=== PATIENT | male | born 1950 | race Caucasian/White ===

== ENCOUNTER → 2023-02-27 | Outpatient (CLI) | payer OTHER, SELFPAY ==
--- NOTE | 2023-02-27 10:40 | LES_PTH ---
PATIENT: EDMOND SALVADOR LOC: [facility] U#:[id number] AGE/SX: 72/M ROOM: RE02/27/[address]: Dr. Je San MD : 1950 BED: DIS: 02/27/2023 SPEC #: [id number] RECD: 02/28/23 08:42 STATUS: NEREYDA SALCEDO #: [id number] PAPO: 02/27/23 10:[address]: Je San DEPT: SURGICAL PATHOLOGY RECD BY: Natividad Sharma ENTERED: 02/28/23 08:43 SP TYPE: Lesion OTHR DR: Dr. Sanjay Key MD Tissues: Skin of external ear, NOS Procedures: Surgery Specimen Level IV HEADER OPERATION: Right ear skin neoplasm PRE-OP DIAGNOSIS: Right ear skin neoplasm TISSUE SUBMITTED: Right ear skin neoplasm FROZEN SECTION DIAGNOSIS Correlation with clinical findings and appropriate follow up are necessary. MICROSCOPIC DIAGNOSIS Right ear skin lesion, biopsy: Mild sebaceous hyperplasia and dermal chronic inflammation. Solar elastosis. Demodex folliculorum. Negative for malignancy. TIGRE:edwin 03/01/2023 MICROSCOPIC DESCRIPTION Slides are reviewed. GROSS DESCRIPTION Received in fixative is one container labeled with the patient's name and designated ear. The specimen consists of a piece of brown skin measuring 0.2 x 0.1 x <0.1 cm. The specimen is totally submitted in one cassette. / Anna 02/28/2023 TC:5 CPT: 97645
== END | disposition home or self-care (01) ==
LOC: LABSPEC 16:09
PROVIDERS: PCP Obstetrics & Gynecology Reproductive Endocrinology; Referring Provider Otolaryngology; Visit Provider Otolaryngology
DX: C44.202 Unspecified malignant neoplasm of skin of right ear and external auricular canal (principal)
CPT/HCPCS: 88305

== ENCOUNTER → 2024-02-19 | Outpatient (CLI) | payer MEDICARE, SELFPAY ==
[2024-02-19 14:14] LABS: Bacteria 0 SEEN /hpf (None Seen); Mucous, Urine 0 SEEN /hpf (<or=2+); Red Blood Cells-Urine 0 SEEN /hpf (0-5); Squamous Epithelial Cells - UA 0 SEEN /hpf (0-5); White Blood Cells 0 SEEN /hpf (0-5)
[2024-02-19 17:51] LABS: Absolute Lymphocyte Count 1.12 X10^3/uL (0.83-4.51); Absolute Neutrophil Count 4.2 X10^3/uL (2.0-7.7); Basophil# 0.07 X10^3/uL; Basophil% 1.2 % (0-1); Eosinophil# 0.06 X10^3/uL; Hematocrit 46.5 % (40-54); Hemoglobin 13.8 g/dL (13.0-16.5); Lymphocyte # 1.12 X10^3/ul (0.83-4.51); Lymphocyte % 18.9 % (19-41); Mean Corp Hgb Conc 29.7 g/dL (32-36); Mean Corpuscular Hgb 23.2 pg (27.0-32.0); Mean Corpuscular Volume 78.2 fL (80-94); Mean Platelet Vol. 10.1 fl (6.2-12.0); Monocyte# 0.42 X10^3/uL; Monocyte% 7.1 % (0-10); NRBC Flagged by Analyzer 0 % (0-5); Neutrophil # 4.23 X10^3/uL (2.7-7.7); Neutrophil % 71.5 % (47-70); POSITIVE MORPHOLOGY YES; Platelet Count 328 K/mm3 (150-450); RBC Distribution Width CV 21.5 % (11.6-14.6); Red Blood Count 5.95 M/mm3 (4.6-6.2); White Blood Count 5.9 K/mm3 (4.4-11.0)
[2024-02-19 18:00] LABS: Color, Urine Straw (Yellow); Glucose, Dipstick Normal (Normal); Ketone-Dipstick Negative (Negative); Leukocyte Esterase-Dipstick Negative /ul (Negative); Nitrite-Dipstick Negative (Negative); Occult Blood-Urine Negative /ul (Negative); Protein-Dipstick Negative (Negative); Specific Gravity, Urine 1.005 (1.002-1.030); Urine Bilirubin Dipstick Negative (Negative); Urine Clarity Clear (Clear); Urine Urobilinogen Normal (Normal); Urine pH 6.5 (5.0 - 8.0)
[2024-02-19 18:03] LABS: Differential Indicated SCAN CRITERIA MET
[2024-02-19 18:05] LABS: AST(SGOT) 18 U/L (15-37); Alanine Aminotransfer ALT/SGPT 27 U/L (16-61); Albumin, Serum 4.2 g/dL (3.2-5.0); Alkaline Phosphatase 63 U/L (45-117); Anion Gap 7 (5-15); BUN 20 mg/dL (7-18); BUN/Creat Ratio 13.6 RATIO (10-20); CPK Total, Creatine Kinase 142 U/L (39-308); Calcium,Total 9.5 mg/dL (8.5-10.1); Chloride 105 mmol/L (98-107); Creatinine, Serum 1.47 mg/dL (0.70-1.30); EST Glomerular Filtration Rate 50 mL/min (>60); Est Glom Filt Rate - Afr Amer 60 mL/min (>60); Globulin 4.1 g/dL (2.2-4.2); Glucose 81 mg/dL (74-106); Protein, Total 8.3 g/dL (6.4-8.2); Sodium Level 139 mmol/L (136-145)
[2024-02-19 18:31] LABS: Anisocytosis RARE; Platelet Estimate ADEQUATE (ADEQ); Red Cell Morphology N CHROM NORMAL (NORM C&C)
[2024-02-19 18:32] LABS: Microcytosis RARE
[2024-02-21 14:11] LABS: Aldolase 4.2 U/L (3.3-10.3)
[2024-02-22 14:09] LABS: Anti-Nuclear Antibody Test Negative (.); Anti-dsDNA Ab <1 IU/mL (0-9)
== END | disposition home or self-care (01) ==
LOC: MTLAB 14:11
PROVIDERS: PCP Obstetrics & Gynecology Reproductive Endocrinology; Referring Provider Dermatology; Visit Provider Dermatology
DX: Z13.0 Encounter for screening for diseases of the blood and blood-forming organs and certain disorders involving the immune mechanism (principal)
CPT/HCPCS: 36415; 80053; 81001; 82085; 82550; 85025; 86038; 86225; 87086